=== PATIENT | male | born 1970 | race Caucasian/White ===

== ENCOUNTER → 2020-03-21 | Outpatient (CLI) | payer MEDICARE | LOC: M LABSMTC 10:02 | PROVIDERS: ATTEND Anesthesiology | DX: Z01.812 Encounter for preprocedural laboratory examination (principal); Z20.828 Contact with and (suspected) exposure to other viral communicable diseases | CPT/HCPCS: C9803; U0003 ==

== ENCOUNTER → 2020-04-09 | Outpatient (CLI) | payer MEDICARE ==
--- NOTE | 2020-04-13 04:53 | ECWPNPC ---
PATIENT NAME: BEATRIZ HINOTN : 1970 GENDER: MALE VISIT DATE: 04/09/2020 DISCHARGE DATE: 04/09/20 1051 VISIT LOCKED DATE TIME: PHYSICIAN: LILLIE ALFONSO RESOURCE: LILLIE ALFONSO REASON FOR APPOINTMENT 1. POST RIGHT SIJ HISTORY OF PRESENT ILLNESS GENERAL: HERE FOR POST PROCEDURE FOLLOW-UP. HAD RIGHT SIJ ON 03/26/2020. REPORTING NO IMPROVEMENT POST PROCEDURE. WILL BE SEEING [facility] IN THE NEXT FEW WEEKS IN REGARDS TO PERSISTENT SEVERE RIGHT HIP PAIN STATUS POST RIGHT HIP SURGERY/REPLACEMENT. REPORTING POOR SLEEP. STATES THAT HE IS GETTING 2 HOURS IF THAT OF SLEEP PER NIGHT. FEELS HYDROCODONE 10/325 IS INEFFECTIVE. DISCUSSED MEDICATION AND TREATMENT OPTIONS AT LENGTH. BRINGS IN HYDROCODONE WHICH IS APPROPRIATE FOR WHAT WAS DISPENSED. -. FALL RISK SCREENING: SCREENING :ONE FALL WITHOUT INJURY IN THE PAST YEAR PAIN SCREENING: PATIENT HAS A COMPLAINT OF ACUTE OR CHRONIC PAIN :YES LOCATION OF PAIN:LOW BACK, RIGHT HIP, OTHER: RIGHT ANTERIOR KNEE INTENSITY OF PAIN (SCALE OF 1 TO 10):9 WHAT DOES YOUR PAIN FEEL LIKE:SHARP DURATION:CONTINOUS PAIN IS INCREASED BY:ACTIVITIES, PROLONGED STANDING PAIN IS DECREASED BY:OTHERS MOIST HEAT NURSING NOTE: -. PAIN CENTER INTAKE QUESTIONS: DO YOU HAVE A HISTORY OF MRSA? :NO DO YOU TAKE A BLOOD THINNERS? :NO DO YOU HAVE ANY BLEEDING DISORDERS? :NO ANY NEW NUMBNESS OR WEAKNESS IN YOUR LEGS OR ARMS? :NO RIGHT FOOT NUMBNESS INTERMITTENTLY ANY PACEMAKER,DEFIBRILLATOR, OR DORSAL COLUMN STIMULATOR? :NO DO YOU HAVE ANY RASHES OR OPEN SORES? :NO ARE YOU ALLERGIC TO IV DYE? :NO ARE YOU DIABETIC? :YES ANY NEW PROBLEMS WITH YOUR MEDICATIONS? :YES STATES IS TAKING 15-20 IBUPROFEN 200 MG TABLETS PER DAY WITHOUT IMPROVEMENT IN PAIN HAVE YOU RECEIVED A VACCINE IN THE PAST 30 DAYS? :NO DO YOU PLAN TO RECEIVE A VACCINE IN THE NEXT 21 DAYS? :NO DO YOU NEED ANY PRESCRIPTION? :YES WANTS TO DISCUSS GABAPENTIN DO YOU TAKE ANY IMMUNOSUPPRESSIVE MEDICATIONS? :NO IS THERE A CHANCE YOU COULD BE ? :NO ARE YOU BREAST FEEDING? :NO CURRENT MEDICATIONS TAKING NORCO 10-325 MG TABLET 1 TABLET NEEDED ORALLY TID PRN TAKING GABAPENTIN 300 MG CAPSULE 1 CAPSULE ORALLY 6 PER DAY TAKING IBUPROFEN 200 MG TABLET 1 TABLET WITH FOOD OR MILK NEEDED ORALLY THREE TIMES A DAY TAKING MAY HAVE - - VITAMIN B12 2 GUMMIES ORAL DAILY MEDICATION LIST REVIEWED AND RECONCILED WITH THE PATIENT PAST MEDICAL HISTORY DIABETES OSTEOARTHRITIS RHEUMATOID ARTHRITIS LYME DISEASE 2011 ALLERGIES CODEINE SULFATE: ITCHING - ALLERGY - ONSET DATE 04/29/2010 SURGICAL HISTORY LAMINECTOMY/DISCECTOMY L4-5 04/2010 SPINAL FUSION L4-5 2011 LAMINECTOMY/DISCECTOMY L4-5 2013 SPINAL FUSION L4-5 01/2017 LEFT HIP REPLACEMENT 06/2016 RIGHT HIP REPLACEMENT 04/2019 FAMILY HISTORY FATHER: 61 YRS, MYOCARDIAL INFARCTION MOTHER: ALIVE 73 YRS SIBLINGS: 1 BROTHER(S) , 2 SISTER(S) - HEALTHY. BROTHER AGE 39 NON-HODGKIN'S LYMPHOMA. SOCIAL HISTORY GENERAL: TOBACCO USE ARE YOU A:NONSMOKER LATEX QUESTIONNAIRE LATEX ALLERGY : HAVE YOU EVER DEVELOPED ANY TYPE OF REACTION AFTER HANDLING LATEX PRODUCTS SUCH RUBBER GLOVES, CONDOMS, DIAPHRAGMS, BALLOONS, SOCKS, OR UNDERWEAR?NO LATEX ALLERGY : HAVE YOU EVER DEVELOPED ANY TYPE OF REACTION DURING OR AFTER DENTAL APPOINTMENT, VAGINAL/RECTAL EXAMINATION, SURGICAL PROCEDURE, OR ANY OTHER EXPOSURE?NO LATEX RISK : HAVE YOU EVER HAD ANY DIFFICULTY BREATHING OR HIVES AFTER EATING OR HANDLING ANY FRUITS, OR VEGETABLES; SUCH KIWI, BANANAS, STONE FRUITS, OR CHESTNUTSNO LATEX RISK : DO YOU HAVE A PREVIOUS PERSONAL HISTORY OF MORE THAN NINE SURGERIES, SPINA BIFIDA, OR REPEATED CATHERIZATIONS? NO LATEX RISK : ARE YOU FREQUENTLY EXPOSED TO LATEX PRODUCTS IN YOUR OCCUPATION?NO DATE ASKED : 04/09/2020 ALCOHOL SCREENING DID YOU HAVE A DRINK CONTAINING ALCOHOL IN THE PAST YEAR?NO POINTS0 INTERPRETATIONNEGATIVE RECREATIONAL DRUG USE DRUG USE?NO PATIENT DENIES ABUSE OR MISSUSED OF ANY MEDICATION NONE PATIENT DENIES USE OF ANY ILLEGAL SUBSTANCE INCLUDING MARIJUANA OR COCAINE NONE LANGUAGE LANGUAGES SPOKEN:[place] LEARNING BARRIERS / SPECIAL NEEDS BARRIERS TO LEARNING?NO HEARING IMPAIRED?NO VISION IMPAIRED?NO COGNITIVELY IMPAIRED?NO READINESS TO LEARN?YES LEARNING PREFERENCES?YES :DEMONSTRATION/VERBAL INSTRUCTION LEARNING CAPABILITIES PRESENT?YES EMOTIONAL BARRIERS?NO SPECIAL DEVICES?NO 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 PAIN CLINIC PFS, CLERGY, PUBLIC HEALTH REFERRALS HAS THE PATIENT BEEN EDUCATED REGARDING HIS/HER PLAN OF CARE?YES HAS THE PATIENT BEEN EDUCATED REGARDING PAIN, THE RISK FOR PAIN, THE IMPORTANCE OF EFFECTIVE PAIN MANAGEMENT, AND THE PAIN ASSESSMENT PROCESS?YES ADVANCE DIRECTIVE ADVANCE DIRECTIVE DISCUSSED WITH PATIENT:YES INFORMATION OFFERED AND DECLINED. HOSPITALIZATION/MAJOR DIAGNOSTIC PROCEDURE SURGERIES REVIEW OF SYSTEMS CONSTITUTIONAL: ANY RECENT FEVER NO . CHILLS NO . WEIGHT CHANGE OF UNKNOWN REASONS NO . GASTROENTEROLOGY: NEW UNEXPLAINABLE CHANGES IN BOWEL CONTROL NO . CONSTIPATION NO . GENITOURINARY: ANY NEW CHANGE IN BLADDER CONTROL? NO . NEUROLOGY: NEW ONSET DIZZINESS OR NEUROLOGICAL CHANGES NOT MENTIONED NO . NEW NUMBNESS OR PAIN PATTERNS NOT MENTIONED AND PERTINENT TO TODAY'S VISIT NO . CARDIOLOGY: NEW CHEST PRESSURE NO . NEW CHEST PAIN NO . RESPIRATORY: UNEXPLAINABLE COUGH NO . NEW SHORTNESS OF BREATH NO . VITAL SIGNS WT 176.2 LBS, HT 58 IN, BMI 36.82 INDEX, BP 141/75 MM HG, HR 74 /MIN, RR 18 /MIN, TEMP 97.1 F, OXYGEN SAT % 99%, NA INITIALS AW 0952, REVIEWED BY: VALERIA. EXAMINATION GENERAL EXAMINATION: GENERALAWAKE,ALERT ,PLEASANT . PSYCHAFFECT NORMAL . LUNGS:LUNG LOCKWOOD ARE CLEAR TO AUSCULTATION BILATERALLY. GOOD MOVEMENT OF AIR . HEART:S1, S2 IN A REGULAR RATE AND RHYTHM. NO SIGNIFICANT MURMURS, RUBS OR GALLOPS NOTED . ASSESSMENTS SACROILIITIS - M46.1 (PRIMARY) CHRONIC PRESCRIPTION OPIATE USE - Z79.891 TREATMENT SACROILIITIS STOP NORCO TABLET, 10-325 MG, 1 TABLET NEEDED, ORALLY, TID PRN REFILL GABAPENTIN TABLET, 600 MG, 1 TABLET, ORALLY, THREE TIMES DAILY, 30 DAYS, 90, REFILLS 2 START PERCOCET TABLET, 10-325 MG, 1 TABLET NEEDED, ORALLY, EVERY 8 HOURS WHEN NECESSARY FOR PAIN MDD 3, 30 DAYS, 90, REFILLS 0 START AMITRIPTYLINE HCL TABLET, 25 MG, 1 TABLET AT BEDTIME, ORALLY, ONCE A DAY, 30 DAY(S), 30, REFILLS 2 NOTES: PATIENT IS TAKING LARGE AMOUNTS OF IBUPROFEN AND TYLENOL DAILY. DISCUSSED THE POTENTIAL FOR LIVER AND KIDNEY TOXICITY AT THESE DOSES. HE HAS DEVELOPED TOLERANCE TO HYDROCODONE. TODAY I'VE RECOMMENDED WE FORMALLY WASTE HYDROCODONE 10/325 AND START PERCOCET 10/325 EVERY 8 HOURS NEEDED FOR PAIN MDD OF 3. DUE TO POOR SLEEP I WILL RECOMMEND AMITRIPTYLINE 25 MG 1-2 TABLETS AT AT BEDTIME. FOLLOW-UP AFTER NERVE CONDUCTION STUDIES AND VISIT WITH DOCTORS IN [place]. , ISTOP REGISTRY REVIEWED AND DEMONSTRATES COMPLLIANCE. BRINGS IN MEDICATIONS WHICH IS APPROPRIATE FOR WHAT WAS DISPENSED. RECENT URINE TOXICOLOGY REVIEWED. NO UNAUTHORIZED MEDICATIONS. NO ILLICIT SUBSTANCES AND PRESCRIBED MEDICATIONS WERE PRESENT. , RISKS OF NARCOTIC/OPIOD MEDICATIONS INCLUDES BUT IS NOT LIMITED TO RISK OF DEPENDANCE/DEVELOPMENT OF ADDICTION, MOOD DISTURBANCE AND DEPRESSION, OSTEOPOROSIS, HORMONAL AND LABIDAL CHANGES, RESPIRATORY DEPRESSION AND . PATIENT IS ADVISED NOT TO DRIVE OR DRINK ALCOHOL WHILE ON THESE MEDICATIONS. CLINICAL NOTES: MEDICATION WASTED UNDER 2 RN WELL THE PT EDUCATED PT ON NEW MEDIICATIONS AND GIVEN PRINTED EDUCATION. PROCEDURE CODES [id number] ESTABILISHED PATIENT [facility] CHARGE DISPOSITION & COMMUNICATION FOLLOW UP 2 MONTHS (REASON: MED MGMNT/UTOX) ELECTRONICALLY SIGNED BY SILVIA MERLOS ON 04/12/2020 AT 01:26 PM EDT DISCLAIMER : THIS IS A VISIT SUMMARY EXTRACTED FROM THE [employer] CHART. IT IS NOT A COPY OF THE [employer] PROGRESS NOTE. ANNETTE
== END ==
LOC: M PAIN 09:30
PROVIDERS: ATTEND Nurse Practitioner Family
DX: M46.1 Sacroiliitis, not elsewhere classified (principal); E11.9 Type 2 diabetes mellitus without complications; M06.9 Rheumatoid arthritis, unspecified; M19.90 Unspecified osteoarthritis, unspecified site; Z79.891 Long term (current) use of opiate analgesic; Z79.899 Other long term (current) drug therapy; Z88.5 Allergy status to narcotic agent